=== PATIENT | female | born 1985 | race Caucasian/White ===

== ENCOUNTER 2019-04-08 12:25 | Emergency (ER) | payer OTHER ==
[~2019-04-08] VITALS: Ht 160 cm; Wt 68.2 kg
[2019-04-08 14:40] LABS: COLLECTION METHOD CLEAN CATCH
[2019-04-08 14:45] LABS: BASO % 0.5 % (0.0-2.0); EOS % 0.5 % (0-4.0); GRAN % 60.7 % (42.2-75.2); HEMATOCRIT 40.2 % (37.0-47.0); HEMOGLOBIN 13.5 g/dl (12.5-16.0); LYMPH # 2.5 (1.2-3.4); LYMPH % 30.7 % (20.0-51.0); MEAN CELL VOLUME 95 fl (80.0-100.0); MEAN CORPUSCULAR HEMOGLOBIN 32 pg (27.0-31.0); MEAN CORPUSCULAR HGB CONC 34 g/dl (33.0-37.0); MEAN PLATELET VOLUME 10.8 fl (7.4-10.4); MONO # 0.6 (0.1-0.6); MONO % 7.5 % (1.7-9.3); PLATELET COUNT 176 K/mm3 (130-400); RED BLOOD COUNT 4.24 M/mm3 (4.10-5.30); REDCELL DISTRIBUTION WIDTH-CV 12.4 % (11.5-14.5)
[2019-04-08 14:47] LABS: PH 8 (5-8); SQUAMOUS EPITHELIAL 0-2 /hpf; URINE APPEARANCE Clear; URINE BACTERIA None Seen /hpf; URINE BILIRUBIN Negative (NEGATIVE); URINE BLOOD Negative (NEGATIVE); URINE COLOR Yellow; URINE GLUCOSE Negative (NEGATIVE); URINE KETONE 1+ (NEGATIVE); URINE LEUKOCYTE ESTERASE Negative (NEGATIVE); URINE NITRATE Negative (NEGATIVE); URINE PROTEIN(semi-quant) Negative (NEGATIVE); URINE RBC 0-2 /hpf; URINE UROBILINOGEN Negative (NEGATIVE)
[2019-04-08 15:00] LABS: ALANINE AMINOTRANSFERASE 24 U/L (9-52); ALBUMIN 4.6 gm/dL (3.5-5.0); ALKALINE PHOSPHATASE 44 U/L (50-136); ANION GAP 7 mmol/L (7-16); AST,SGOT 27 U/L (15-37); BILIRUBIN,TOTAL 0.5 mg/dL (0.0-1.0); BLOOD UREA NITROGEN 15 mg/dL (7-17); CALCIUM 8.8 mg/dL (8.4-10.2); CARBON DIOXIDE 26 mmol/L (22-30); CHLORIDE 105 mmol/L (98-107); CREATININE, serum 0.83 (0.52-1.25); GLUCOSE 91 mg/dL (74-106); MAGNESIUM 1.9 mg/dL (1.6-2.3); POTASSIUM 4.1 mmol/L (3.4-5.0); SODIUM 139 mmol/L (137-145); TOTAL PROTEIN 7.2 gm/dL (6.4-8.2)
[2019-04-08 15:01] LABS: C-REACTIVE PROTEIN < 0.5 mg/dL (0.0-0.9)
[2019-04-08 16:11] VITALS: BP 125/84; PULSE 72; TEMP 98.2
== END 2019-04-08 16:10 | disposition home or self-care (01) ==
LOC: COL.ER 12:25
PROVIDERS: Physician Assistant
DX: R00.2 Palpitations (principal)

== ENCOUNTER 2019-09-30 13:03 | Outpatient (CLI) | payer OTHER ==
[~2019-09-30] VITALS: Ht 160.1 cm; Wt 70.5 kg
[2019-09-30] MEDS ORDERED: LEXAPRO20 MG PO (13:15)
[2019-09-30 13:35] LABS: HEMATOCRIT 39.7 % (37.0-47.0); HEMOGLOBIN 13.4 g/dl (12.5-16.0); MEAN CELL VOLUME 93 fl (80.0-100.0); MEAN CORPUSCULAR HEMOGLOBIN 32 pg (27.0-31.0); MEAN CORPUSCULAR HGB CONC 34 g/dl (33.0-37.0); MEAN PLATELET VOLUME 10.5 fl (7.4-10.4); PLATELET COUNT 194 K/mm3 (130-400); RED BLOOD COUNT 4.25 M/mm3 (4.10-5.30); REDCELL DISTRIBUTION WIDTH-CV 12.2 % (11.5-14.5)
[2019-09-30 13:37] LABS: INR 1.5 (0.8-3.0); PROTHROMBIN TIME 16.3 SECONDS (9.7-12.8)
[2019-09-30 13:55] VITALS: BP 128/76; PULSE 71; TEMP 98.7
[2019-09-30 14:27] VITALS: BP 112/72; PULSE 86; TEMP 98.7
[2019-10-07 08:44] VITALS: BP 112/72; PULSE 86; TEMP 98.7
== END 2019-09-30 16:00 | disposition home or self-care (01) ==
LOC: COL.CAR 13:03
PROVIDERS: Internal Medicine Interventional Cardiology
DX: R55 Syncope and collapse (principal); I49.3 Ventricular premature depolarization; Z88.1 Allergy status to other antibiotic agents
CPT/HCPCS: C1764

== ENCOUNTER 2020-10-17 21:43 | Emergency (ER) | payer OTHER ==
[~2020-10-17] VITALS: Ht 160 cm; Wt 72.7 kg
[~2020-10-17 21:43] MED LIST: LEXAPRO20 MG PO
[2020-10-17 21:54] VITALS: TEMP 98.4
[2020-10-17 23:03] LABS: BASO # 0.1 (0.0-0.2); EOS # 0.2 (0.0-0.7); EOS % 2.4 % (0-4.0); GRAN # 2.6 (1.4-6.5); GRAN % 40.4 % (42.2-75.2); HEMATOCRIT 40.3 % (37.0-47.0); HEMOGLOBIN 13.5 g/dl (12.5-16.0); LYMPH # 2.9 (1.2-3.4); LYMPH % 46.6 % (20.0-51.0); MEAN CELL VOLUME 96 fl (80.0-100.0); MEAN CORPUSCULAR HEMOGLOBIN 32 pg (27.0-31.0); MEAN CORPUSCULAR HGB CONC 34 g/dl (33.0-37.0); MEAN PLATELET VOLUME 10.9 fl (7.4-10.4); MONO # 0.6 (0.1-0.6); MONO % 9.4 % (1.7-9.3); PLATELET COUNT 227 K/mm3 (130-400); RED BLOOD COUNT 4.21 M/mm3 (4.10-5.30); REDCELL DISTRIBUTION WIDTH-CV 12.2 % (11.5-14.5)
[2020-10-17 23:14] LABS: ALANINE AMINOTRANSFERASE 16 U/L (4-34); ALBUMIN 4.2 gm/dL (3.5-5.0); ALKALINE PHOSPHATASE 51 U/L (50-136); ANION GAP 5 mmol/L (7-16); AST,SGOT 27 U/L (15-37); BILIRUBIN,TOTAL 0.3 mg/dL (0.0-1.0); BLOOD UREA NITROGEN 19 mg/dL (7-17); CALCIUM 9.4 mg/dL (8.4-10.2); CARBON DIOXIDE 27 mmol/L (22-30); CHLORIDE 107 mmol/L (98-107); CREATININE, serum 0.73 (0.52-1.25); GLUCOSE 89 mg/dL (74-106); POTASSIUM 3.8 mmol/L (3.4-5.0); SODIUM 138 mmol/L (137-145); TOTAL PROTEIN 6.8 gm/dL (6.4-8.2)
[2020-10-17 23:46] LABS: TROPONIN-I < 0.012 ng/mL (0.000-0.035)
[2020-10-18 00:10] VITALS: BP 138/68; PULSE 80
== END 2020-10-18 00:15 | disposition home or self-care (01) ==
LOC: COL.ER 21:43
PROVIDERS: Personal Emergency Response Attendant
DX: R07.9 Chest pain, unspecified (principal); R42 Dizziness and giddiness; Z95.818 Presence of other cardiac implants and grafts